=== PATIENT | male | born 1940 | race Caucasian/White ===

== ENCOUNTER 2023-10-30 13:41 | Emergency (ER) | payer MEDICARE, OTHER, SELFPAY ==
[2023-10-30] VITALS (13 sets, daily range): BP systolic 120–181; BP diastolic 52–94; PULSE 66–70; RESP 15–20; TEMP 36.5–36.7; O2SAT 95–99; BMI 35.4
--- NOTE | 2023-10-30 14:16 | ECG_ITS ---
APPROVED REPORT Exam: Resting ECG HR:69 bpm ECG Measurements Heart Rate 69 AXES QRSd 178 QRS 251 QT 455 T 25 QTc 475 Conclusion ELECTRONIC VENTRICULAR PACEMAKER Appropriately paced Electronically signed by : ELSIE MCNEAL, 10/31/2023 03:26:49
[2023-10-30 14:17] LABS: Basophils # 0.1 K/mm3 (0-0.2); Basophils % 0.8 % (0.1-2.0); Eosinophils # 0.1 K/mm3 (0.0-0.4); Eosinophils % 0.7 % (0.1-12.0); Hemoglobin 16.1 g/dL (14.1-18.0); Lymphocytes # 2.4 K/mm3 (0.7-4.5); Lymphocytes % 18.7 % (10-50); Mean Corpuscular Hemoglobin 29.6 pg (27.0-31.2); Mean Corpuscular Volume 95.4 fl (80-94); Mean Platelet Volume 11.7 fl (7.4-10.4); Monocytes # 0.7 K/mm3 (0.1-1.0); Monocytes % 5.5 % (1.7-9.3); Neutrophils # 9.6 K/mm3 (1.8-7.8); Neutrophils % 74.2 % (37.0-80.0); Platelet Count 178 K/mm3 (142-424); Red Blood Count 5.45 M/mm3 (4.60-6.20); Red Cell Distribution Width 15.2 % (11.5-17.5)
--- NOTE | 2023-10-30 14:18 | PC.NURSE ---
stool collection and hemoccult obtained
[2023-10-30 14:20] LABS: Occult Blood,Stool Negative (Negative)
--- NOTE | 2023-10-30 14:20 | ED_ITS ---
Discharge Plan Disposition Patient Disposition: Home, Self-Care Condition: Serious Prescriptions Prescriptions: New nitrofurantoin macrocrystal 100 mg capsule 100 mg PO BID 7 Days Qty: 14 0RF Rx Instructions: must administer with a meal/food Referrals Follow up/Referrals: Provider,Referral, MD [Primary Care Provider] - See instructions Activity Restrictions/Add. Instructions Additional Instructions/Restrictions: [facility] are attempting to arrange a earlier follow-up. You need to establish care with a PCP of your choosing. You have had significant findings on your CAT scan that need to be investigated fairly urgently. Please return to the emergency department for any change in condition or worsening signs and symptoms. Clinical Impressions Clinical Impression: Malignant neoplastic disease Urinary tract infection Qualifiers: Urinary tract infection type: site unspecified Hematuria presence: with hematuria Qualified Code(s): N39.0 - Urinary tract infection, site not specified Instructions Patient Instructions: DI for Gastrointestinal Bleeding Discharge ED Provider: Clement Taylor General Adult HPI <MIGUEL Cutler - Last Filed: 10/30/23 18:35> General Chief complaint: GI Bleed Stated complaint: dark stool Time Seen by Provider: 10/30/23 14:08 History of Present Illness HPI narrative: Patient presents for evaluation of nausea and abdominal pain. Patient has a longstanding history of an umbilical hernia that has been followed at the [facility]. Patient states that he was told if he ever had nausea vomiting or abdominal pain to have it checked out . Patient began having abdominal discomfort with defecation today and reports feeling lightheaded while on the toilet. He has had 2 normal stools that he reports is brown but dark. He denies pain with defecation. He also reports feeling nauseated through most of the day. He has not had any vomiting chest pain shortness of breath fever chills hemoptysis hematochezia melena hematemesis hematuria. Related Data Previous Rx's Medication Instructions Recorded nitrofurantoin macrocrystal 100 mg 100 mg PO BID 7 days #14 caps 10/30/23 capsule Allergies Allergy/AdvReac Type Severity Reaction Status Date / Time glipizide Allergy Verified 10/30/23 13:54 Penicillins Allergy Verified 10/30/23 13:54 PFSH <MIGUEL Cutler - Last Filed: 10/30/23 18:35> [facility] Disclaimer: The information contained in this section may have been updated after the patient was seen, as this information can be updated by other users. Social History (Updated 10/30/23 @ 18:35 by MIGUEL Cutler) Smoking Status: Never smoker alcohol intake: never current occupational status: retired Travel in the last 8 weeks: Inside the [place] <MIGUEL Cutler - Last Filed: 10/30/23 18:35> ROS Obtained: Yes Systems reviewed as appropriate & no additional complaints except as documented Physical Exam <MIGUEL Cutler - Last Filed: 10/30/23 18:35> General General appearance: alert and in no apparent distress Head Head exam: atraumatic and normal inspection Eye Eye exam: Present normal appearance and PERRL ENT ENT exam: Present normal exam, normal oropharynx and mucous membranes moist Neck Neck exam: Present normal inspection and full ROM; Absent lymphadenopathy Chest Chest inspection: Present normal inspection and symmetric chest wall rise Respiratory Respiratory exam: Present normal lung sounds bilaterally; Absent respiratory distress or accessory muscle use Cardiovascular Cardiovascular exam: Present regular rate, normal rhythm and normal heart sounds Abdominal Exam Abdominal exam: Present soft (Obese), tenderness (Patient is diffusely nonfocally tender.), normal bowel sounds and hernia (Patient does have an umbilical hernia contains a loop of small bowel but it is partially reducible and the bowel loop feels soft); Absent guarding or rebound Abdominal tenderness: Present diffuse and mild Extremities Exam Extremities exam: Present normal inspection and full ROM Back Exam Back exam: Present normal inspection and full ROM Neurological Exam Neurological exam: Present alert and oriented X3 Psychiatric Psychiatric exam: Present normal affect and normal mood Skin Skin exam: Present warm, dry and normal color Medical Decision Making <MIGUEL Cutler - Last Filed: 10/30/23 18:35> Medical Records Medical records reviewed: Yes I reviewed the patient's medical records. Naldo Inquiry Pt receiving controlled substance: No Vital Signs: 10/30/23 13:42 10/30/23 13:45 10/30/23 14:31 Temperature 97.7 F Temperature Source Oral Pulse Rate 70 70 Pulse Rate [Right] 70 Respiratory Rate 20 15 19 Blood Pressure 120/53 L 127/53 L Blood Pressure [Right Arm] 129/52 L Blood Pressure Mean Blood Pressure Mean [Right Arm] 77 Blood Pressure Source [Right Arm] Automatic Cuff 02 Sat by Pulse Oximetry 98 97 95 Oxygen Delivery Method Room Air Room Air Room Air 10/30/23 15:00 10/30/23 15:46 10/30/23 16:01 Temperature Temperature Source Pulse Rate 70 66 70 Pulse Rate [Right] Respiratory Rate 17 16 17 Blood Pressure 155/71 H 130/52 L 135/60 Blood Pressure [Right Arm] Blood Pressure Mean Blood Pressure Mean [Right Arm] Blood Pressure Source [Right Arm] 02 Sat by Pulse Oximetry 98 96 96 Oxygen Delivery Method Room Air Room Air Room Air 10/30/23 16:16 10/30/23 16:31 10/30/23 16:46 Temperature Temperature Source Pulse Rate 70 67 70 Pulse Rate [Right] Respiratory Rate 18 18 20 Blood Pressure 154/66 H 152/68 H 141/64 H Blood Pressure [Right Arm] Blood Pressure Mean 81 95 89 Blood Pressure Mean [Right Arm] Blood Pressure Source [Right Arm] 02 Sat by Pulse Oximetry 96 98 98 Oxygen Delivery Method 10/30/23 17:03 10/30/23 17:31 10/30/23 18:01 Temperature Temperature Source Pulse Rate 70 67 70 Pulse Rate [Right] Respiratory Rate 20 16 18 Blood Pressure 181/94 H 172/73 H 179/53 H Blood Pressure [Right Arm] Blood Pressure Mean 104 105 98 Blood Pressure Mean [Right Arm] Blood Pressure Source [Right Arm] 02 Sat by Pulse Oximetry 98 99 96 Oxygen Delivery Method 10/30/23 19:59 Temperature 98.1 F Temperature Source Oral Pulse Rate 70 Pulse Rate [Right] Respiratory Rate 18 Blood Pressure 161/77 H Blood Pressure [Right Arm] Blood Pressure Mean Blood Pressure Mean [Right Arm] Blood Pressure Source [Right Arm] 02 Sat by Pulse Oximetry Oxygen Delivery Method Lab Data Lab results reviewed: Yes I reviewed the patient's lab results. Lab Results 10/30/23 13:40: WBC 13.0 H, RBC 5.45, Hgb 16.1, Hct 52.0, MCV 95.4 H, MCH 29.6, MCHC 31.0 L, RDW 15.2, Plt Count 178, MPV 11.7 H, Neut % (Auto) 74.2, Lymph % (Auto) 18.7, Dunn % (Auto) 5.5, Eos % (Auto) 0.7, Baso % (Auto) 0.8, Neut # (Auto) 9.6 H, Lymph # (Auto) 2.4, Dunn # (Auto) 0.7, Eos # (Auto) 0.1, Baso # (Auto) 0.1, Sodium 139, Potassium 3.6, Chloride 103, Carbon Dioxide 25, Anion Gap 14.6, BUN 22 H, Creatinine 1.20, Estimated Creat Clear 71, Estimated GFR 58 L, Est GFR ( Amer) 70, Glucose 129 H, Calcium 9.3, Total Bilirubin 1.4 H, AST 46, ALT 23, Alkaline Phosphatase 254 H, Troponin I 0.02, Total Protein 7.4, Albumin 4.1, Globulin 3.3 H, Albumin/Globulin Ratio 1.2 10/30/23 14:10: Stool Occult Blood Negative 10/30/23 14:45: Lactate 1.1 10/30/23 15:10: Urine Color Yellow, Urine Appearance Cloudy, Urine pH 6.0, Ur Specific Milo 1.010, Urine Protein Trace, Urine Glucose (UA) 3+, Urine Ketones 1+, Urine Blood 1+, Urine Nitrate Negative, Urine Bilirubin Negative, Urine Urobilinogen 1.0, Ur Leukocyte Esterase 2+ A, Urine RBC 5-10, Urine WBC 20-50, Urine Bacteria Trace, Urine Yeast 1+ 10/30/23 13:40 10/30/23 13:40 Orders (Tests/Meds): ED MEDICATIONS Discontinued Medications Generic Name Dose Route Start Last Admin Trade Name Darciq PRN Reason Stop Dose Admin Acetaminophen 1,000 mg 10/30/23 14:38 10/30/23 15:00 Acetaminophen 1,000mg/100ml Vial IV 10/30/23 14:39 1,000 mg ONCE ONE Administration Iopamidol 75 ml 10/30/23 15:40 10/30/23 15:41 Iopamidol-370 (76%);100ml Bottle IV 10/30/23 15:41 75 ml ONCE ONE Administration Ketorolac Tromethamine 15 mg 10/30/23 14:38 10/30/23 15:00 Ketorolac 30mg/Ml Vial IV 10/30/23 14:39 15 mg ONCE ONE Administration Ondansetron HCl 4 mg 10/30/23 14:25 10/30/23 14:37 Ondansetron 4mg/2ml Vial IV 10/30/23 14:26 4 mg ONCE ONE Administration Sodium Chloride 10 ml 10/30/23 15:40 10/30/23 15:42 Sodium Chloride 0.9% 10ml Syr (Rad Only) IV 11/29/23 15:39 10 ml NEEDED PRN Administration Maintain IV Site ORDERS Category Date Time Status CT abdomen pelvis w con Stat Cat Scan 10/30/23 14:25 Completed Complete Blood Count Auto Diff Stat Lab 10/30/23 13:40 Completed Comprehensive Metabolic Panel Stat Lab 10/30/23 13:40 Completed Lactic Acid Stat Lab 10/30/23 14:45 Completed Occult Blood,Stool Stat Lab 10/30/23 14:10 Completed Troponin I Stat Lab 10/30/23 13:40 Completed Urinalysis and Microscopic Stat Lab 10/30/23 15:10 Completed Urine Culture Stat Micro 10/30/23 15:10 Received Medical Decision Narrative: In summary patient is a 83-year-old male who presents to the emergency department for evaluation of nausea and abdominal pain. Patient is hemodynamically stable upon arrival, afebrile. Physical exam is remarkable for diffuse nonfocal abdominal pain with normal bowel sounds and a umbilical hernia that is partially reducible only due to patient's body habitus with a loop of small bowel that feels soft and nontender.. Differential diagnosis includes gastroenteritis versus bowel obstruction versus bleed versus bowel infarction etc. Initial workup will be conducted with hematologic labs CT scan of the abdomen IV contrast . Initial interventions include Zofran and Toradol acetaminophen. Initial workup reviewed by me shows a white count of 13,000 with an absolute neutrophil count of 9.6, BUN was 22 creatinine 1.2 GFR is 58 total bilirubin 1.4 alk phos of 254 and urinalysis shows 3+ glucose 1+ ketones 1+ blood nitrite negative with 2+ leukocytes. My informal interpretation of his CT scan abdomen pelvis shows concerning liver masses along with splenic masses. Radiologist read pending. Upon repeat evaluation had complete resolution of his nausea and significant diminishment of his abdominal discomfort.. Given this [facility] and further evaluation of the liver and splenic findings. We have attempted to make an initial appointment for him without success today. Patient does have an establish care visit set up because he just moved to the area from [place] which I have strongly urged him to keep. Additionally I have ordered a prescription for Macrodantin and sent to his pharmacy. <Clement Taylor MD - Last Filed: 10/31/23 15:13> Vital Signs: 10/30/23 13:42 10/30/23 13:45 10/30/23 14:31 Temperature 97.7 F Temperature Source Oral Pulse Rate 70 70 Pulse Rate [Right] 70 Respiratory Rate 20 15 19 Blood Pressure 120/53 L 127/53 L Blood Pressure [Right Arm] 129/52 L Blood Pressure Mean Blood Pressure Mean [Right Arm] 77 Blood Pressure Source [Right Arm] Automatic Cuff 02 Sat by Pulse Oximetry 98 97 95 Oxygen Delivery Method Room Air Room Air Room Air 10/30/23 15:00 10/30/23 15:46 10/30/23 16:01 Temperature Temperature Source Pulse Rate 70 66 70 Pulse Rate [Right] Respiratory Rate 17 16 17 Blood Pressure 155/71 H 130/52 L 135/60 Blood Pressure [Right Arm] Blood Pressure Mean Blood Pressure Mean [Right Arm] Blood Pressure Source [Right Arm] 02 Sat by Pulse Oximetry 98 96 96 Oxygen Delivery Method Room Air Room Air Room Air 10/30/23 16:16 10/30/23 16:31 10/30/23 16:46 Temperature Temperature Source Pulse Rate 70 67 70 Pulse Rate [Right] Respiratory Rate 18 18 20 Blood Pressure 154/66 H 152/68 H 141/64 H Blood Pressure [Right Arm] Blood Pressure Mean 81 95 89 Blood Pressure Mean [Right Arm] Blood Pressure Source [Right Arm] 02 Sat by Pulse Oximetry 96 98 98 Oxygen Delivery Method 10/30/23 17:03 10/30/23 17:31 10/30/23 18:01 Temperature Temperature Source Pulse Rate 70 67 70 Pulse Rate [Right] Respiratory Rate 20 16 18 Blood Pressure 181/94 H 172/73 H 179/53 H Blood Pressure [Right Arm] Blood Pressure Mean 104 105 98 Blood Pressure Mean [Right Arm] Blood Pressure Source [Right Arm] 02 Sat by Pulse Oximetry 98 99 96 Oxygen Delivery Method 10/30/23 19:59 Temperature 98.1 F Temperature Source Oral Pulse Rate 70 Pulse Rate [Right] Respiratory Rate 18 Blood Pressure 161/77 H Blood Pressure [Right Arm] Blood Pressure Mean Blood Pressure Mean [Right Arm] Blood Pressure Source [Right Arm] 02 Sat by Pulse Oximetry Oxygen Delivery Method Lab Data Lab Results 10/30/23 13:40: WBC 13.0 H, RBC 5.45, Hgb 16.1, Hct 52.0, MCV 95.4 H, MCH 29.6, MCHC 31.0 L, RDW 15.2, Plt Count 178, MPV 11.7 H, Neut % (Auto) 74.2, Lymph % (Auto) 18.7, Dunn % (Auto) 5.5, Eos % (Auto) 0.7, Baso % (Auto) 0.8, Neut # (Auto) 9.6 H, Lymph # (Auto) 2.4, Dunn # (Auto) 0.7, Eos # (Auto) 0.1, Baso # (Auto) 0.1, Sodium 139, Potassium 3.6, Chloride 103, Carbon Dioxide 25, Anion Gap 14.6, BUN 22 H, Creatinine 1.20, Estimated Creat Clear 71, Estimated GFR 58 L, Est GFR ( Amer) 70, Glucose 129 H, Calcium 9.3, Total Bilirubin 1.4 H, AST 46, ALT 23, Alkaline Phosphatase 254 H, Troponin I 0.02, Total Protein 7.4, Albumin 4.1, Globulin 3.3 H, Albumin/Globulin Ratio 1.2 10/30/23 14:10: Stool Occult Blood Negative 10/30/23 14:45: Lactate 1.1 10/30/23 15:10: Urine Color Yellow, Urine Appearance Cloudy, Urine pH 6.0, Ur Specific Milo 1.010, Urine Protein Trace, Urine Glucose (UA) 3+, Urine Ketones 1+, Urine Blood 1+, Urine Nitrate Negative, Urine Bilirubin Negative, Urine Urobilinogen 1.0, Ur Leukocyte Esterase 2+ A, Urine RBC 5-10, Urine WBC 20-50, Urine Bacteria Trace, Urine Yeast 1+ Orders (Tests/Meds): ED MEDICATIONS Discontinued Medications Generic Name Dose Route Start Last Admin Trade Name Freq PRN Reason Stop Dose Admin Acetaminophen 1,000 mg 10/30/23 14:38 10/30/23 15:00 Acetaminophen 1,000mg/100ml Vial IV 10/30/23 14:39 1,000 mg ONCE ONE Administration Iopamidol 75 ml 10/30/23 15:40 10/30/23 15:41 Iopamidol-370 (76%);100ml Bottle IV 10/30/23 15:41 75 ml ONCE ONE Administration Ketorolac Tromethamine 15 mg 10/30/23 14:38 10/30/23 15:00 Ketorolac 30mg/Ml Vial IV 10/30/23 14:39 15 mg ONCE ONE Administration Ondansetron HCl 4 mg 10/30/23 14:25 10/30/23 14:37 Ondansetron 4mg/2ml Vial IV 10/30/23 14:26 4 mg ONCE ONE Administration Sodium Chloride 10 ml 10/30/23 15:40 10/30/23 15:42 Sodium Chloride 0.9% 10ml Syr (Rad Only) IV 11/29/23 15:39 10 ml NEEDED PRN Administration Maintain IV Site ORDERS Category Date Time Status CT abdomen pelvis w con Stat Cat Scan 10/30/23 14:25 Completed Complete Blood Count Auto Diff Stat Lab 10/30/23 13:40 Completed Comprehensive Metabolic Panel Stat Lab 10/30/23 13:40 Completed Lactic Acid Stat Lab 10/30/23 14:45 Completed Occult Blood,Stool Stat Lab 10/30/23 14:10 Completed Troponin I Stat Lab 10/30/23 13:40 Completed Urinalysis and Microscopic Stat Lab 10/30/23 15:10 Completed Urine Culture Stat Micro 10/30/23 15:10 Received Medical Decision Narrative: In summary patient is a 83-year-old male who presents to the emergency department for evaluation of nausea and abdominal pain. Patient is hemodynamically stable upon arrival, afebrile. Physical exam is remarkable for diffuse nonfocal abdominal pain with normal bowel sounds and a umbilical hernia that is partially reducible only due to patient's body habitus with a loop of small bowel that feels soft and nontender.. Differential diagnosis includes gastroenteritis versus bowel obstruction versus bleed versus bowel infarction etc. Initial workup will be conducted with hematologic labs CT scan of the abdomen IV contrast . Initial interventions include Zofran and Toradol acetaminophen. Initial workup reviewed by me shows a white count of 13,000 with an absolute neutrophil count of 9.6, BUN was 22 creatinine 1.2 GFR is 58 total bilirubin 1.4 alk phos of 254 and urinalysis shows 3+ glucose 1+ ketones 1+ blood nitrite negative with 2+ leukocytes. My informal interpretation of his CT scan abdomen pelvis shows concerning liver masses along with splenic masses. Radiologist read pending. Upon repeat evaluation had complete resolution of his nausea and significant diminishment of his abdominal discomfort.. Given this [facility] and further evaluation of the liver and splenic findings. We have attempted to make an initial appointment for him without success today. Patient does have an establish care visit set up because he just moved to the area from [place] which I have strongly urged him to keep. Additionally I have ordered a prescription for Macrodantin and sent to his pharmacy. I was consulted by the RAUDEL, and we discussed the complexity of the problems being addressed. I approved the treatment and management plan for this patient?s care in the Emergency Department, thus performing a substantive portion of the medical decision making. Clement Taylor MD Critical Care <MIGUEL Cutler - Last Filed: 10/30/23 18:35> Critical Care Time Critical Care Time: No
[2023-10-30 14:24] LABS: Alanine Aminotransferase 23 U/L (12-78); Albumin Level 4.1 g/dl (3.5-5.0); Albumin/Globulin Ratio 1.2 (1.1-1.8); Alkaline Phosphatase 254 U/L (38-126); Anion Gap 14.6 mEq/L (5-15); Aspartate Amino Transferase 46 U/L (17-59); Bilirubin,Total 1.4 mg/dl (0.2-1.3); Blood Urea Nitrogen 22 mg/dl (9-20); Calcium 9.3 mg/dl (8.4-10.2); Carbon Dioxide 25 mmol/L (22.0-30.0); Chloride 103 mmol/L (98-107); Creatinine Clearance Estimated 71 mL/min (50-200); Estimated Glomerular Filt Rate 58 ml/min (>60); GFR (African American) 70 ML/MIN (>60); Globulin 3.3 g/dL (1.3-3.2); Glucose 129 mg/dl (74-100); Potassium 3.6 mmoL/L (3.5-5.1); Sodium 139 mmol/L (136-145); Total Protein,Serum 7.4 g/dl (6.3-8.2)
--- NOTE | 2023-10-30 14:25 | CT_ITS ---
FINAL REPORT TECHNIQUE: Postcontrast axial images through the abdomen and pelvis were performed. This study was performed with techniques to keep radiation doses as low as reasonably achievable, (ALARA). Individualized dose reduction techniques using automated exposure control or adjustment of mA and/or kV according to the patient's size were employed. CLINICAL HISTORY: Nausea and abdominal pain FINDINGS: Abdomen: There is mild bibasilar atelectasis. The left hepatic lobe has a heterogeneous appearance, may represent infiltrative primary neoplasm or hepatic metastatic disease. There are multiple gallstones with mild gallbladder wall thickening. The spleen The adrenals are normal. The pancreas is unremarkable. There are bilateral renal cysts. The aorta is normal in caliber. No free fluid or adenopathy is identified. No findings for mechanical bowel obstruction are identified. Pelvis: The appendix is not identified. There is an umbilical hernia containing fat. There is bladder wall thickening, likely inflammatory. There is sigmoid diverticulosis without evidence of diverticulitis. No free fluid, free air, abscess or adenopathy is identified. IMPRESSION: Left hepatic lobe has a heterogeneous appearance, may represent infiltrative primary neoplasm or hepatic metastatic disease. If indicated, liver MRI with and without contrast may be helpful. Cholelithiasis with gallbladder wall thickening. Findings worrisome for multiple masses in the spleen. Findings were reported to ER physician on 10/30/2023 at 4:46 p.m.. Reviewed, Interpreted and Dictated by Terry Wick III, MD Transcribed by Radha Moore Authenticated and [facility]
[2023-10-30 14:35] LABS: Troponin I 0.02 ng/ml (0.00-0.034)
[2023-10-30] MEDS: ONDANSETRON 4MG/2ML VIAL 4 MG IV (14:37)
[2023-10-30] MEDS: KETOROLAC 30MG/ML VIAL 15 MG IV (15:00)
[2023-10-30] MEDS: ACETAMINOPHEN 1,000MG/100ML VIAL 1000 MG IV (15:00)
[2023-10-30 15:17] LABS: Lactic Acid 1.1 mmol/L (0.7-2.1)
[2023-10-30 15:18] LABS: Microscopic, Urine URINE MICROSCOPIC (MICROSCOPIC)
[2023-10-30 15:19] LABS: Appearance,Urine CLOUDY (Clear); Bilirubin,Urine Negative (Negative); Blood, Urine 1+ (Negative); Color,Urine YELLOW (Yellow); Glucose,Urine (UA) 3+ (Negative); Ketones,Urine 1+ (Negative); Leukocyte Esterase,Urine 2+ (Negative); Nitrate,Urine Negative (Negative); Protein,Urine TRACE (Negative)
--- NOTE | 2023-10-30 15:24 | PC.NURSE ---
Pt gone to RAD
[2023-10-30] MEDS: IOPAMIDOL-370 (76%);100ML BOTTLE 75 ML IV (15:41)
[2023-10-30] MEDS: SODIUM CHLORIDE 0.9% 10ML SYR (RAD ONLY) 10 ML IV (15:42)
[2023-10-30 16:12] LABS: Bacteria,Urine Trace /lpf; WBC,Urine 20-50 #/hpf (0-3); Yeast,Urine 1+ /lpf
--- NOTE | 2023-10-30 16:45 | PC.NURSE ---
Dr Monsivais speaking with [facility]
--- NOTE | 2023-10-30 17:05 | PC.NURSE ---
[facility] to [facility]
--- NOTE | 2023-10-30 18:09 | PC.NURSE ---
pt given urinal and call light
--- NOTE | 2023-10-30 18:21 | PC.NURSE ---
called for meal tray
--- NOTE | 2023-10-30 18:40 | PC.NURSE ---
PT PROVIDED SUPPER TRAY
--- NOTE | 2023-10-30 18:42 | PC.NURSE ---
DAUGHTER NOTIFIED OF PT NEED FOR RIDE
--- NOTE | 2023-11-05 07:18 | PC.NURSE ---
reviewed urine culture with , pt dc with macrobid, NTD
== END 2023-10-30 20:13 | disposition home or self-care (01) ==
PROVIDERS: Emergency Provider Emergency Medicine
DX: R10.84 Generalized abdominal pain (principal); R42 Dizziness and giddiness; K92.1 Melena; R11.0 Nausea; K76.9 Liver disease, unspecified; D73.89 Other diseases of spleen
CPT/HCPCS: 74177; 80053; 81001; 82272; 83605; 84484; 85025; 87086; 93005; 96374; 96375; 99285; G0328; J0131; J2405; Q9967

== ENCOUNTER 2023-11-23 01:51 | Emergency (ER) | payer MEDICARE, OTHER, SELFPAY ==
[2023-11-23] VITALS (9 sets, daily range): BP systolic 140–185; BP diastolic 59–89; PULSE 66–71; RESP 11–19; TEMP 36.4–36.7; O2SAT 98–100; BMI 33.5
--- NOTE | 2023-11-23 01:54 | ECG_ITS ---
APPROVED REPORT Exam: Resting ECG HR:69 bpm ECG Measurements Heart Rate 69 AXES QRSd 168 QRS 260 QT 428 T 68 QTc 448 Conclusion ELECTRONIC VENTRICULAR PACEMAKER ABNORMAL RHYTHM ECG Electronically signed by : YESSY COLLINS, 11/23/2023 07:51:35
--- NOTE | 2023-11-23 02:03 | XR_ITS ---
PROCEDURE INFORMATION: Exam: XR Chest Exam date and time: 11/23/2023 2:03 AM Age: 83 years old Clinical indication: Sternal or substernal pain; Additional info: Chest pain, substernal TECHNIQUE: Imaging protocol: Radiologic exam of the chest. Views: 1 view. COMPARISON: CT ABDOMEN PELVIS W CON 10/30/2023 3:21 PM FINDINGS: Tubes, catheters and devices: Dual lead left-sided cardiac pacemaker. Lungs: Low lung volumes . Granulomatous change. Pleural spaces: Unremarkable. No pleural effusion. No pneumothorax. Heart/Mediastinum: Unremarkable. No cardiomegaly. Bones/joints: Midline sternotomy. IMPRESSION: No acute findings.
--- NOTE | 2023-11-23 02:04 | ED_ITS ---
Discharge Plan Disposition Patient Disposition: Home, Self-Care Condition: Good Prescriptions Prescriptions: New ciprofloxacin HCl 500 mg tablet 500 mg PO BID Qty: 20 0RF fluconazole 150 mg tablet 150 mg PO Q3D Qty: 2 0RF No Action nitrofurantoin macrocrystal 100 mg capsule 100 mg PO BID 7 Days Qty: 14 0RF Rx Instructions: must administer with a meal/food Activity Restrictions/Add. Instructions Additional Instructions/Restrictions: You were evaluated in the emergency department today. At this time, your workup is reassuring. I feel that your chest pain is likely musculoskeletal. Please take Tylenol and ibuprofen at home as needed for pain. 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 Please notify them that you were seen here today. Your creatinine is slightly elevated from your baseline, which could be due to the urinary tract infection that you are undergoing treatment for. We sent a urine culture. We are changing your antibiotic to a stronger antibiotic. Please stop taking the antibiotic that you have at home. We will call you to notify you if there are any issues based on culture results. Return to the emergency department for new or worsening symptoms. Clinical Impressions Clinical Impression: Chest pain, Creatinine elevation, Acute UTI, Yeast UTI, HBP (high blood pressure), BRENT (obstructive sleep apnea) Instructions Patient Instructions: DI for Atypical Chest Pain, DI for Costochondritis, DI for Acute Kidney Injury Discharge ED Provider: Neha Egan General Adult HPI General Chief complaint: Chest Pain Stated complaint: CP Time Seen by Provider: 11/23/23 01:55 History of Present Illness HPI narrative: This patient is an 83-year-old male with a history of CAD status post CABG, aortic valve replacement, and pacemaker presenting with concern for chest pain. Patient reports that this morning, when he woke up he noted that he was having some pain on the left side of his chest wall. He states that he thought he pulled a muscle. He noted that whenever he sat up to eat, the pain seemed to radiate into the middle of his chest. Throughout the day and night his pain got worse and he continued to feel tightness and pain in the middle of his chest that is worse with movement and certain positions. He notes that his chest wall is very tender to palpation. He notes that he took his vitals at home and his blood pressure was high. He called EMS for further evaluation and management. EMS noted that they gave the patient aspirin and nitroglycerin with no change in his pain, however his blood pressure did improve. No STEMI per EKG obtained by EMS. No fevers, chills, cough, shortness of breath, abdominal pain, nausea, vomiting, changes in bowel movements. No other concerns noted at this time. Related Data Previous Rx's Medication Instructions Recorded nitrofurantoin macrocrystal 100 mg 100 mg PO BID 7 days #14 caps 10/30/23 capsule ciprofloxacin HCl 500 mg tablet 500 mg PO BID #20 tabs 11/23/23 fluconazole 150 mg tablet 150 mg PO Q3D 2 doses #2 tabs 11/23/23 Allergies Allergy/AdvReac Type Severity Reaction Status Date / Time glipizide Allergy Verified 10/30/23 13:54 Penicillins Allergy Verified 10/30/23 13:54 [facility] Disclaimer: The information contained in this section may have been updated after the patient was seen, as this information can be updated by other users. Social History Smoking Status: Never smoker alcohol intake: never current occupational status: retired Travel in the last 8 weeks: Inside the [place] ROS Obtained: Yes All systems reviewed & no additional complaints except as documented Physical Exam General General appearance: alert, in no apparent distress and obese Head Head exam: atraumatic and normocephalic Eye Eye exam: Present normal appearance, PERRL and EOMI ENT ENT exam: Present normal exam, normal oropharynx, mucous membranes moist and normal external ear exam Neck Neck exam: Present normal inspection, full ROM and trachea midline; Absent tenderness Chest Chest inspection: Present symmetric chest wall rise and tenderness (Midsternal and left-sided chest wall tenderness) Respiratory Respiratory exam: Present normal lung sounds bilaterally; Absent respiratory distress, wheezes, stridor or accessory muscle use Cardiovascular Cardiovascular exam: Present regular rate, normal rhythm and Pacemaker w/paced rhythm Abdominal Exam Abdominal exam: Present soft and tenderness (Epigastric); Absent distention, guarding, rebound or rigidity Extremities Exam Extremities exam: Present normal inspection, full ROM, normal capillary refill and other (Chronic skin changes to bilateral lower extremities); Absent tenderness or edema Back Exam Back exam: Present normal inspection and full ROM; Absent tenderness Neurological Exam Neurological exam: Present alert, oriented X3, CN II-XII intact and normal gait; Absent motor sensory deficit Psychiatric Psychiatric exam: Present normal affect and normal mood Skin Skin exam: Present warm and dry Medical Decision Making Medical Records Medical records reviewed: Yes I reviewed the patient's medical records. Naldo Inquiry Pt receiving controlled substance: No Vital Signs: 11/23/23 01:57 11/23/23 02:00 11/23/23 02:31 Temperature 97.6 F Temperature Source Oral Pulse Rate 70 Pulse Rate [Left Radial] 70 Respiratory Rate 11 L 19 18 Blood Pressure 140/59 L 179/80 H Blood Pressure [Right Arm] 140/69 Blood Pressure Mean 86 97 Blood Pressure Mean [Right Arm] 92 Blood Pressure Source [Right Arm] Automatic Cuff Blood Pressure Position [Right Arm] Sitting 02 Sat by Pulse Oximetry 98 98 99 Oxygen Delivery Method Room Air Room Air Room Air 11/23/23 02:41 11/23/23 03:02 11/23/23 03:30 Temperature Temperature Source Pulse Rate 66 71 69 Pulse Rate [Left Radial] Respiratory Rate 15 17 16 Blood Pressure 185/85 H 143/89 H 176/81 H Blood Pressure [Right Arm] Blood Pressure Mean 102 107 97 Blood Pressure Mean [Right Arm] Blood Pressure Source [Right Arm] Blood Pressure Position [Right Arm] 02 Sat by Pulse Oximetry 98 99 99 Oxygen Delivery Method Room Air Room Air Room Air Lab Data Lab results reviewed: Yes I reviewed the patient's lab results. Lab Results 11/23/23 01:56: WBC 13.6 H, RBC 5.92, Hgb 17.2, Hct 55.9 H, MCV 94.4 H, MCH 29.0, MCHC 30.7 L, RDW 15.0, Plt Count 185, MPV 11.3 H, Neut % (Auto) 76.6, Lymph % (Auto) 15.8, Mineral % (Auto) 5.3, Eos % (Auto) 1.2, Baso % (Auto) 1.1, N eut # (Auto) 10.4 H, Lymph # (Auto) 2.2, Mineral # (Auto) 0.7, Eos # (Auto) 0.2, Baso # (Auto) 0.2, D-Dimer 0.50, Sodium 139, Potassium 4.6, Chloride 102, Carbon Dioxide 29, Anion Gap 12.6, BUN 16, Creatinine 1.50 H, Estimated Creat Clear 53, Estimated GFR 45 L, Est GFR ( Amer) 54 L, Glucose 141 H, Calcium 10.3 H, Total Bilirubin 1.0, AST 53, ALT 22, Alkaline Phosphatase 345 H, Troponin I < 0.01, NT-Pro-B Natriuret Pep 1370 H, Total Protein 8.5 H, Albumin 4.6, Globulin 3.9 H, Albumin/Globulin Ratio 1.2, Lipase 165 11/23/23 03:37: Troponin I < 0.01 11/23/23 04:13: Urine Color Yellow, Urine Appearance Clear, Urine pH 6.0, Ur Specific [place] 1.020, Urine Protein Trace, Urine Glucose (UA) 3+, Urine Ketones 1+, Urine Blood 1+, Urine Nitrate Negative, Urine Bilirubin Negative, Urine Urobilinogen 0.2, Ur Leukocyte Esterase 2+ A, Urine RBC 5-10, Urine WBC 50-100, Ur Squamous Epith Cells 3-5, Urine Bacteria 1+, Urine Yeast 1+ 11/23/23 01:56 11/23/23 01:56 Orders (Tests/Meds): ED MEDICATIONS Discontinued Medications Generic Name Dose Route Start Last Admin Trade Name Freq PRN Reason Stop Dose Admin Acetaminophen 1,000 mg 11/23/23 02:03 11/23/23 02:18 Acetaminophen 500mg Tab PO 11/23/23 02:04 1,000 mg ONCE ONE Administration Ketorolac Tromethamine 15 mg 11/23/23 02:03 11/23/23 02:18 Ketorolac 30mg/Ml Vial IV 11/23/23 02:04 15 mg ONCE ONE Administration Lidocaine 1 each 11/23/23 02:03 11/23/23 02:19 Lidocaine 5% Transdermal Patch TP 11/23/23 02:04 1 each ONCE ONE Administration ORDERS Category Date Time Status XR chest portable Stat Exams 11/23/23 02:03 Completed Complete Blood Count Auto Diff Stat Lab 11/23/23 01:56 Completed Comprehensive Metabolic Panel Stat Lab 11/23/23 01:56 Completed D-Dimer Stat Lab 11/23/23 01:56 Completed Lipase Stat Lab 11/23/23 01:56 Completed NT Pro Brain Natriuretic Pep. Stat Lab 11/23/23 01:56 Completed Troponin I Q3H Lab 11/23/23 03:37 Completed Troponin I Q3H Lab 11/23/23 08:15 Ordered Troponin I Stat Lab 11/23/23 01:56 Completed Urinalysis and Microscopic Stat Lab 11/23/23 04:13 Completed Urine Culture Stat Micro 11/23/23 04:13 Received ECG Data Tracing #1: I reviewed this ECG and interpreted as documented below: Ventricularly paced rhythm with a rate of 69 bpm. Appropriately paced. No Sgarbossa criteria for STEMI. ECG initial impression date: 11/23/23 ECG initial impression time: 01:58 HEART Score History (anamnesis): Slightly suspicious ECG: Normal Age: >65 years Risk factors: Atherosclerosis history Troponin: </= normal limit HEART Score: 4 Medical Decision Narrative: In summary, this patient is a 83-year-old male presenting to the Emergency Department for evaluation of chest pain. Differential diagnoses considered include but are not limited to muculoskeletal chest pain, ACS, dysrhythmia, GERD, PE, costochondritis. Ruling out the most morbid conditions drove assessment. I reviewed patient's past medical records and noted previous evaluation 10/30/2023 here in the emergency department for abdominal pain, at which point CT scan was concerning for multiple liver and splenic masses concerning for malignancy. Patient did not have known prior malignancy. He was advised to follow-up outpatient for these findings. He notes that he has not yet followed up, but has appointment scheduled December 09. On exam, the patient is resting comfortably. His pain is reproducible with palpation of his chest wall, so is likely musculoskeletal, however he does have extensive cardiac history. 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 He is not hypoxic or in any respiratory distress. Workup included CBC, CMP, troponin, BNP, D-dimer, chest x-ray, and EKG. Patient was given IV Toradol, oral Tylenol, and a topical Lidoderm patch for symptomatic improvement of pain. EKG obtained is reassuring. I independently interpreted x-ray prior to the radiologist read and noted no acute focal consolidation and no significant pulmonary edema. Please see their read for final interpretation. Labs were obtained that demonstrated negative initial troponin. Patient does have very mild leukocytosis as well as a very mild elevation in creatinine 1.5. It looks like the leukocytosis was present on prior lab evaluation almost a month ago. He also has chronically elevated alkaline phosphatase. BNP is 1370, unsure what his baseline is as this is the only lab evaluation that we have here I notified the patient of his abnormal renal function today, and he advised that he is currently undergoing treatment for urinary tract infection. He notes he was prescribed antibiotics here for this when he was here last month, but he had a urine culture done this week at the [facility] and they prescribed a new antibiotic. I note that his blood pressure is elevated on repeat assessments with systolics in the 170s to 180s. He does not have any concerns or complaints at this time as far as symptoms go that could be related to hypertensive urgency/emergency, and he does note that he takes multiple medications in the morning for hypertension including metoprolol, amlodipine, and lisinopril but has not yet taken these today. At 0300, patient was placed in ED observation status pending second troponin to determine whether or not the patient would be appropriate for discharge versus admission. The patient was provided serial reevaluations and cardiac monitoring while awaiting ultimate disposition. Patient's second troponin came back negative. On cardiac telemetry, he had reassuring vitals on multiple subsequent reassessments. He did have occasional desaturations with sleeping, but he notes that he knows that he has a history of sleep apnea. His blood pressure still remains hypertensive with systolics in the 170s to 180s, however he has not yet taken his morning medications at home. Repeat urinalysis was obtained. It is still concerning for infection as well as yeast. He notes that he is on Macrobid to treat this currently. I advised that I feel he needs a broader antibiotic and advised that he stop taking the Macrobid, and instead prescribed him ciprofloxacin. I prescribed fluconazole for the yeast. Urine culture was sent and is pending. I considered admission for treatment of all of these things and continued monitoring, however given reassuring cardiac workup and exam, feel the patient is appropriate for discharge with close outpatient follow-up. I advised him that his kidney function is slightly worse than his baseline, and I noted that he should follow- up very closely with his primary care provider for repeat lab assessment. Patient's daughter was contacted and came to pick him up in the emergency department. Patient was discharged in stable condition after all questions were answered. He was discharged at 04 30 after approximately 1.5 hours in ED observation. Critical Care Critical Care Time Critical Care Time: No
[2023-11-23 02:09] LABS: Basophils # 0.2 K/mm3 (0-0.2); Basophils % 1.1 % (0.1-2.0); Eosinophils # 0.2 K/mm3 (0.0-0.4); Eosinophils % 1.2 % (0.1-12.0); Hematocrit 55.9 % (42.0-52.0); Hemoglobin 17.2 g/dL (14.1-18.0); Lymphocytes # 2.2 K/mm3 (0.7-4.5); Lymphocytes % 15.8 % (10-50); Mean Corpuscular HGB Conc 30.7 g/dL (31.8-35.4); Mean Corpuscular Volume 94.4 fl (80-94); Mean Platelet Volume 11.3 fl (7.4-10.4); Monocytes # 0.7 K/mm3 (0.1-1.0); Monocytes % 5.3 % (1.7-9.3); Neutrophils # 10.4 K/mm3 (1.8-7.8); Neutrophils % 76.6 % (37.0-80.0); Platelet Count 185 K/mm3 (142-424); Red Blood Count 5.92 M/mm3 (4.60-6.20); White Blood Count 13.6 K/mm3 (4.8-10.8)
[2023-11-23 02:14] LABS: Alanine Aminotransferase 22 U/L (12-78); Albumin Level 4.6 g/dl (3.5-5.0); Albumin/Globulin Ratio 1.2 (1.1-1.8); Alkaline Phosphatase 345 U/L (38-126); Anion Gap 12.6 mEq/L (5-15); Aspartate Amino Transferase 53 U/L (17-59); Blood Urea Nitrogen 16 mg/dl (9-20); Calcium 10.3 mg/dl (8.4-10.2); Carbon Dioxide 29 mmol/L (22.0-30.0); Chloride 102 mmol/L (98-107); Creatinine Clearance Estimated 53 mL/min (50-200); Estimated Glomerular Filt Rate 45 ml/min (>60); GFR (African American) 54 ML/MIN (>60); Globulin 3.9 g/dL (1.3-3.2); Glucose 141 mg/dl (74-100); Lipase 165 U/L (23-300); Potassium 4.6 mmoL/L (3.5-5.1); Sodium 139 mmol/L (136-145); Total Protein,Serum 8.5 g/dl (6.3-8.2)
[2023-11-23] MEDS: KETOROLAC 30MG/ML VIAL 15 MG IV (02:18)
[2023-11-23] MEDS: ACETAMINOPHEN 500MG TAB 1000 MG PO (02:18)
[2023-11-23] MEDS: LIDOCAINE 5% TRANSDERMAL PATCH 1 EACH TP (02:19)
[2023-11-23 02:27] LABS: NT Pro Brain Natriuretic Pep. 1370 pg/mL (0-450)
[2023-11-23 02:28] LABS: Troponin I < 0.01 ng/ml (0.00-0.034)
--- NOTE | 2023-11-23 03:46 | PC.NURSE ---
Second trop sent at 0341
[2023-11-23 04:03] LABS: Troponin I < 0.01 ng/ml (0.00-0.034)
[2023-11-23 04:17] LABS: Appearance,Urine CLEAR (Clear); Bilirubin,Urine Negative (Negative); Blood, Urine 1+ (Negative); Color,Urine YELLOW (Yellow); Glucose,Urine (UA) 3+ (Negative); Ketones,Urine 1+ (Negative); Leukocyte Esterase,Urine 2+ (Negative); Microscopic, Urine URINE MICROSCOPIC (MICROSCOPIC); Nitrate,Urine Negative (Negative); Protein,Urine TRACE (Negative); Urobilinogen,Urine 0.2 EU/dl (0.2)
[2023-11-23 04:31] LABS: Bacteria,Urine 1+ /lpf; WBC,Urine 50-100 #/hpf (0-3); Yeast,Urine 1+ /lpf
--- NOTE | 2023-11-23 04:34 | PC.NURSE ---
called pts daughter, Ki at this time to notify of pt being d/c and needing a ride home.
== END 2023-11-23 05:01 | disposition home or self-care (01) ==
PROVIDERS: Emergency Provider Emergency Medicine
DX: R07.89 Other chest pain; N39.0 Urinary tract infection, site not specified; B96.89 Other specified bacterial agents as the cause of diseases classified elsewhere; R79.89 Other specified abnormal findings of blood chemistry; I11.9 Hypertensive heart disease without heart failure; G47.33 Obstructive sleep apnea (adult) (pediatric); I25.10 Atherosclerotic heart disease of native coronary artery without angina pectoris; Z95.0 Presence of cardiac pacemaker; Z95.5 Presence of coronary angioplasty implant and graft
CPT/HCPCS: 71045; 80053; 81001; 83690; 83880; 84484; 85025; 85378; 87086; 93005; 96374; 99285

== ENCOUNTER 2023-11-23 10:53 | Emergency (ER) | payer MEDICARE, OTHER, SELFPAY ==
[2023-11-23] VITALS (9 sets, daily range): BP systolic 146–216; BP diastolic 59–146; PULSE 70; RESP 13–22; TEMP 36.4; O2SAT 93–100; BMI 33.2
--- NOTE | 2023-11-23 10:54 | PC.NURSE ---
DR COLLINS AT BEDSIDE
--- NOTE | 2023-11-23 11:02 | CT_ITS ---
PROCEDURE INFORMATION: Exam: CT Abdomen And Pelvis With Contrast Exam date and time: 11/23/2023 12:25 PM Age: 83 years old Clinical indication: Other: Dysuria; Additional info: Periumbilical hernia pain, dysuria TECHNIQUE: Imaging protocol: Computed tomography of the abdomen and pelvis with contrast. Radiation optimization: All CT scans at this facility use at least one of these dose optimization techniques: automated exposure control; mA and/or kV adjustment per patient size (includes targeted exams where dose is matched to clinical indication); or iterative reconstruction. Contrast material: ISOVUE; Contrast volume: 75 ml; Contrast route: IV; COMPARISON: CT ABDOMEN PELVIS W CON 10/30/2023 3:21 PM FINDINGS: Tubes, catheters and devices: Incompletely visualized pacer leads terminating in the right cardiac chambers. Lungs: Lung bases are unremarkable. Liver: Redemonstrated, peripherally enhancing coalescent hypodense lesions essentially replacing the left hepatic lobe. Mild capsular retraction noted. Gallbladder and bile ducts: Cholelithiasis noted without pericholecystic fluid/stranding. Pancreas: No peripancreatic fluid stranding. No main pancreatic ductal dilation. Spleen: No splenomegaly. Adrenal glands: The adrenal glands are normal. Kidneys and ureters: Nephrograms are symmetric. No nephrolithiasis or hydroureteronephrosis on either side. No solid lesions. There are variably-sized renal cysts. Stomach and bowel: No bowel wall thickening or distention. Appendix: A normal appendix is identified. Intraperitoneal space: There is no evidence of free intraperitoneal or pelvic fluid. Vasculature: Hyperattenuating material in the coronary tree likely a combination of vascular stents and atherosclerosis. The aorta demonstrates moderate atherosclerotic calcification. Scattered pelvic phleboliths noted Lymph nodes: No lymphadenopathy. Urinary bladder: Unremarkable as visualized. Reproductive: Unremarkable as visualized. Bones/joints: Chronic appearing compression deformity at L3 vertebra is re-identified. Multilevel degenerative changes of the included spine. No definitive osseous lesions. Soft tissues: There is a ventral hernia containing omental fat. No free fluid to suggest incarceration. IMPRESSION: 1. Redemonstrated, peripherally enhancing, coalescent hypodense lesions essentially replacing the left hepatic lobe. Mild capsular retraction noted. 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 Correlate clinically. Further evaluation with abdominal MRI with contrast is recommended if not already performed. 2. There is a ventral hernia containing omental fat. No free fluid to suggest incarceration. COMMENTS: Consistent with the [employer]'s Incidental Findings Committee white paper (J Am Dominic Radiol 2018): Any incidental renal lesion less than 1 cm or classified as too small to characterize, or any incidental cystic renal lesion characterized as simple-appearing, is likely benign. No follow-up imaging is recommended for these lesions per consensus recommendations based on imaging criteria.
--- NOTE | 2023-11-23 11:03 | ED_ITS ---
Discharge Plan Disposition Patient Disposition: Home, Self-Care Chief Complaint: Abdominal Pain Prescriptions Prescriptions: No Action ciprofloxacin HCl 500 mg tablet 500 mg PO BID Qty: 20 0RF fluconazole 150 mg tablet 150 mg PO Q3D Qty: 2 0RF nitrofurantoin macrocrystal 100 mg capsule 100 mg PO BID 7 Days Qty: 14 0RF Rx Instructions: must administer with a meal/food Activity Restrictions/Add. Instructions Additional Instructions/Restrictions: At this time it was felt you are safe to be discharged home. If new or worsening symptoms please do not hesitate to return the emergency department. If symptoms persist please follow-up with your family doctor as you are able. Clinical Impressions Clinical Impression: Abdominal pain, Acute UTI, Hernia, Lesion of liver Instructions Patient Instructions: DI for Acute Abdominal Pain Discharge ED Provider: Sagar Navas General Adult HPI General Chief complaint: Abdominal Pain Stated complaint: weakness Time Seen by Provider: 11/23/23 11:02 History of Present Illness HPI narrative: Patient is a 83-year-old male with past medical history of periumbilical hernia, urinary tract infection who presents to the emergency department for evaluation of abdominal pain. Patient states that over the course of the morning patient's hernia has been hurting him. He has had dysuria over the last couple of weeks. Patient was seen in the emergency department last night for chest pain where workup was nonactionable, it was noted that he had persistent urinary tract infection for which she was broadened on levofloxacin for which he has yes to take. Patient was recently seen in the emergency department by Dr. 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 Patient denies vomiting although he is nauseous. No other acute complaints at this time. Related Data Previous Rx's Medication Instructions Recorded nitrofurantoin macrocrystal 100 mg 100 mg PO BID 7 days #14 caps 10/30/23 capsule ciprofloxacin HCl 500 mg tablet 500 mg PO BID #20 tabs 11/23/23 fluconazole 150 mg tablet 150 mg PO Q3D 2 doses #2 tabs 11/23/23 Allergies Allergy/AdvReac Type Severity Reaction Status Date / Time glipizide Allergy Verified 10/30/23 13:54 Penicillins Allergy Verified 10/30/23 13:54 [facility] Disclaimer: The information contained in this section may have been updated after the patient was seen, as this information can be updated by other users. Social History Smoking Status: Never smoker alcohol intake: never current occupational status: retired Travel in the last 8 weeks: Inside the [place] ROS Obtained: Yes Systems reviewed as appropriate & no additional complaints except as documented Physical Exam General General appearance: alert and in no apparent distress Head Head exam: atraumatic and normocephalic Eye Eye exam: Present PERRL and EOMI ENT ENT exam: Present mucous membranes moist Neck Neck exam: Present normal inspection Chest Chest inspection: Present normal inspection and symmetric chest wall rise Respiratory Respiratory exam: Present normal lung sounds bilaterally; Absent respiratory distress Cardiovascular Cardiovascular exam: Present regular rate and normal rhythm Abdominal Exam Abdominal exam: Present soft and tenderness (Periumbilical hernia is mildly tender, there is no overlying skin changes, it is mostly reducible and recurs immediately) Extremities Exam Extremities exam: Present normal inspection Neurological Exam Neurological exam: Present alert Psychiatric Psychiatric exam: Present normal affect Skin Skin exam: Present warm and dry Medical Decision Making Naldo Inquiry Pt receiving controlled substance: No Vital Signs: 11/23/23 10:53 11/23/23 11:03 11/23/23 11:03 Temperature 97.5 F L Temperature Source Oral Pulse Rate 70 Pulse Rate [Apical] 70 Respiratory Rate 18 17 Blood Pressure 155/96 H Blood Pressure [Right Arm] 180/84 H Blood Pressure Mean 129 Blood Pressure Mean [Right Arm] 116 Blood Pressure Source [Right Arm] Automatic Cuff Blood Pressure Position [Right Arm] Sitting 02 Sat by Pulse Oximetry 100 99 Oxygen Delivery Method Room Air 11/23/23 11:31 11/23/23 11:31 11/23/23 12:00 Temperature Temperature Source Pulse Rate 70 70 Pulse Rate [Apical] Respiratory Rate 13 Blood Pressure 171/64 H 146/59 H Blood Pressure [Right Arm] Blood Pressure Mean 140 88 Blood Pressure Mean [Right Arm] Blood Pressure Source [Right Arm] Blood Pressure Position [Right Arm] 02 Sat by Pulse Oximetry 97 99 Oxygen Delivery Method 11/23/23 12:45 11/23/23 13:00 11/23/23 13:32 Temperature Temperature Source Pulse Rate 70 70 70 Pulse Rate [Apical] Respiratory Rate 18 Blood Pressure 172/75 H 191/80 H 216/146 H Blood Pressure [Right Arm] Blood Pressure Mean 101 91 163 Blood Pressure Mean [Right Arm] Blood Pressure Source [Right Arm] Blood Pressure Position [Right Arm] 02 Sat by Pulse Oximetry 99 93 L 98 Oxygen Delivery Method 11/23/23 13:59 Temperature Temperature Source Pulse Rate 70 Pulse Rate [Apical] Respiratory Rate 22 Blood Pressure 159/67 H Blood Pressure [Right Arm] Blood Pressure Mean 97 Blood Pressure Mean [Right Arm] Blood Pressure Source [Right Arm] Blood Pressure Position [Right Arm] 02 Sat by Pulse Oximetry 99 Oxygen Delivery Method Lab Data Lab Results 11/23/23 11:05: WBC 13.4 H, RBC 5.56, Hgb 16.3, Hct 52.2 H, MCV 93.9, MCH 29.4, MCHC 31.3 L, RDW 15.1, Plt Count 166, MPV 11.3 H, Neut % (Auto) 82.3 H, Lymph % (Auto) 12.2, Harrison % (Auto) 4.2, Eos % (Auto) 0.6, Baso % (Auto) 0.6, Neut # (Auto) 11.0 H, Lymph # (Auto) 1.6, Harrison # (Auto) 0.6, Eos # (Auto) 0.1, Baso # (Auto) 0.1, Sodium 138, Potassium 4.8, Chloride 104, Carbon Dioxide 26, Anion Gap 12.8, BUN 16, Creatinine 1.30 H, Estimated Creat Clear 61, Estimated GFR 53 L, Est GFR ( Amer) 64, Glucose 163 H, Lactate 1.6, Calcium 10.2, Total Bilirubin 1.1, AST 47, ALT 23, Alkaline Phosphatase 294 H, Total Protein 7.3, A lbumin 4.0 D, Globulin 3.3 H, Albumin/Globulin Ratio 1.2, Lipase 88 11/23/23 11:30: Urine Color Yellow, Urine Appearance Turbid, Urine pH 6.0, Ur Specific [place] 1.020, Urine Protein 1+, Urine Glucose (UA) 3+, Urine Ketones 2+, Urine Blood 1+, Urine Nitrate Negative, Urine Bilirubin Negative, Urine Urobilinogen 0.2, Ur Leukocyte Esterase 2+ A, Urine RBC None, Urine WBC Tntc, Ur Squamous Epith Cells Occasional, Urine Bacteria 2+, Urine Yeast 1+ 11/23/23 11:05 11/23/23 11:05 Orders (Tests/Meds): ED MEDICATIONS Discontinued Medications Generic Name Dose Route Start Last Admin Trade Name Beatriz PRN Reason Stop Dose Admin Acetaminophen 1,000 mg 11/23/23 11:02 11/23/23 11:11 Acetaminophen 1,000mg/100ml Vial IV 11/23/23 11:03 1,000 mg ONCE ONE Administration Lactated Ringer's 1,000 mls @ 999 mls/hr 11/23/23 11:02 11/23/23 11:11 Lactated Ringer's 1000 Ml Bag IV 11/23/23 12:02 999 mls/hr .Q1H1M ONE Administration Iopamidol 75 ml 11/23/23 12:27 11/23/23 12:34 Iopamidol-370 (76%);100ml Bottle IV 11/23/23 12:28 75 ml ONCE ONE Administration Morphine Sulfate 4 mg 11/23/23 11:02 11/23/23 11:11 Morphine 4mg/Ml Syringe IV 11/23/23 11:03 4 mg ONCE ONE Administration Ondansetron HCl 4 mg 11/23/23 11:02 11/23/23 11:11 Ondansetron 4mg/2ml Vial IV 11/23/23 11:03 4 mg ONCE ONE Administration Sodium Chloride 10 ml 11/23/23 12:27 11/23/23 12:34 Sodium Chloride 0.9% 10ml Syr (Rad Only) IV 11/23/23 12:28 10 ml ONCE ONE Administration ORDERS Category Date Time Status CT abdomen pelvis w con Stat Cat Scan 11/23/23 11:02 Completed CBC w/Auto Diff [Complete Blood Count Auto Diff] Stat Lab 11/23/23 11:05 Completed CMP [Comprehensive Metabolic Panel] Stat Lab 11/23/23 11:05 Completed Lactic Acid Stat Lab 11/23/23 11:05 Completed Lipase Stat Lab 11/23/23 11:05 Completed Urinalysis and Microscopic Routine Lab 11/23/23 11:30 Completed Medical Decision Narrative: In summary patient is 83-year-old male past medical history described above presents emergency department for evaluation of hernia pain and dysuria. Patient is hemodynamically stable nontoxic-appearing upon arrival, afebrile. No complaints of chest pain today. Differential diagnosis includes worsening metastatic disease, partially incarcerated hernia, urinary tract infection, among others. Workup will be conducted with hematologic labs, CT abdomen pelvis IV contrast. Initial interventions include Tylenol, Zofran, morphine, crystalloid bolus, urinalysis. Workup reviewed by me, hematologic labs remarkable for stable mild leukocytosis, no acute anemia or thrombocytopenia, no URI or critical electrolyte abnormalities, stable CKD. Urinalysis consistent with infection. CT abdomen and pelvis redemonstrated peripherally enhancing hypodense lesions essentially replacing the left hepatic lobe suspicious for malignancy with ventral hernia containing omental fat with no free fluid to suggest incarceration. Patient is aware of his malignancy and is being worked up from the [facility] from that standpoint. Patient underwent p.o. trial at bedside and was successful. He had transient desaturation while he was resting however he has a history of sleep apnea and is not interested in BiPAP or CPAP at this time. Patient was instructed to take his antibiotics as they were prescribed and verbalized understanding. Patient will follow-up on an outpatient basis and is appropriate for discharge. Critical Care Critical Care Time Critical Care Time: No
[2023-11-23] MEDS: ACETAMINOPHEN 1,000MG/100ML VIAL 1000 MG IV (11:11)
[2023-11-23] MEDS: LACTATED RINGERS 1000ML 1,000 ML 999 ML IV (11:11)
[2023-11-23] MEDS: MORPHINE 4MG/ML SYRINGE 4 MG IV (11:11)
[2023-11-23] MEDS: ONDANSETRON 4MG/2ML VIAL 4 MG IV (11:11)
[2023-11-23 11:15] LABS: Basophils # 0.1 K/mm3 (0-0.2); Basophils % 0.6 % (0.1-2.0); Eosinophils # 0.1 K/mm3 (0.0-0.4); Eosinophils % 0.6 % (0.1-12.0); Hematocrit 52.2 % (42.0-52.0); Hemoglobin 16.3 g/dL (14.1-18.0); Lymphocytes # 1.6 K/mm3 (0.7-4.5); Lymphocytes % 12.2 % (10-50); Mean Corpuscular HGB Conc 31.3 g/dL (31.8-35.4); Mean Corpuscular Hemoglobin 29.4 pg (27.0-31.2); Mean Corpuscular Volume 93.9 fl (80-94); Mean Platelet Volume 11.3 fl (7.4-10.4); Monocytes # 0.6 K/mm3 (0.1-1.0); Monocytes % 4.2 % (1.7-9.3); Neutrophils % 82.3 % (37.0-80.0); Platelet Count 166 K/mm3 (142-424); Red Blood Count 5.56 M/mm3 (4.60-6.20); Red Cell Distribution Width 15.1 % (11.5-17.5); White Blood Count 13.4 K/mm3 (4.8-10.8)
[2023-11-23 11:20] LABS: Chloride 104 mmol/L (98-107); Potassium 4.8 mmoL/L (3.5-5.1); Sodium 138 mmol/L (136-145)
[2023-11-23 11:22] LABS: Alanine Aminotransferase 23 U/L (12-78); Alkaline Phosphatase 294 U/L (38-126); Aspartate Amino Transferase 47 U/L (17-59); Bilirubin,Total 1.1 mg/dl (0.2-1.3); Blood Urea Nitrogen 16 mg/dl (9-20); Creatinine Clearance Estimated 61 mL/min (50-200); Estimated Glomerular Filt Rate 53 ml/min (>60); GFR (African American) 64 ML/MIN (>60)
[2023-11-23 11:23] LABS: Albumin/Globulin Ratio 1.2 (1.1-1.8); Anion Gap 12.8 mEq/L (5-15); Calcium 10.2 mg/dl (8.4-10.2); Carbon Dioxide 26 mmol/L (22.0-30.0); Globulin 3.3 g/dL (1.3-3.2); Glucose 163 mg/dl (74-100); Lipase 88 U/L (23-300); Total Protein,Serum 7.3 g/dl (6.3-8.2)
[2023-11-23 11:46] LABS: Microscopic, Urine URINE MICROSCOPIC (MICROSCOPIC)
[2023-11-23 11:48] LABS: Appearance,Urine TURBID (Clear); Bilirubin,Urine Negative (Negative); Blood, Urine 1+ (Negative); Color,Urine YELLOW (Yellow); Glucose,Urine (UA) 3+ (Negative); Ketones,Urine 2+ (Negative); Leukocyte Esterase,Urine 2+ (Negative); Nitrate,Urine Negative (Negative); Protein,Urine 1+ (Negative); Urobilinogen,Urine 0.2 EU/dl (0.2)
[2023-11-23 11:48] LABS: Lactic Acid 1.6 mmol/L (0.7-2.1)
[2023-11-23 12:01] LABS: Bacteria,Urine 2+ /lpf; Squamous Epithelial Cell,Urine Occasional #/hpf (0-5); WBC,Urine TNTC #/hpf (0-3); Yeast,Urine 1+ /lpf
--- NOTE | 2023-11-23 12:32 | PC.NURSE ---
Pt returned to room from RAD
[2023-11-23] MEDS: SODIUM CHLORIDE 0.9% 10ML SYR (RAD ONLY) 10 ML IV (12:34)
[2023-11-23] MEDS: IOPAMIDOL-370 (76%);100ML BOTTLE 75 ML IV (12:34)
--- NOTE | 2023-11-23 12:57 | PC.NURSE ---
Rounded on pt. Pt resting quietly with eyes closed. Respirations are even and unlabored and call light remains within reach.
--- NOTE | 2023-11-23 13:51 | PC.NURSE ---
Pt adjusted in bed and given diet pepsi for PO challenge
--- NOTE | 2023-11-23 14:32 | PC.NURSE ---
Attempted to reach pt contact, received busy signal. Pt called someone for a ride. He advised they told him, I'm in the middle of something so it will be a while. Call light remains within reach
== END 2023-11-23 15:00 | disposition home or self-care (01) ==
PROVIDERS: Emergency Provider Emergency Medicine
DX: R10.9 Unspecified abdominal pain (principal); N39.0 Urinary tract infection, site not specified; K46.9 Unspecified abdominal hernia without obstruction or gangrene; K76.9 Liver disease, unspecified; G47.33 Obstructive sleep apnea (adult) (pediatric)
CPT/HCPCS: 74177; 80053; 81001; 83605; 83690; 85025; 96361; 96374; 96375; 99285; J0131; J2405; Q9967